=== PATIENT | female | born 1990 | race Native Hawaiian/Other Pacific Islander ===

== ENCOUNTER → 2022-09-22 14:25 | Outpatient (BNVA) | payer OTHER, SELFPAY | PROVIDERS: PCP Internal Medicine; Visit Provider Nurse Practitioner Family | DX: M79.10 Myalgia, unspecified site (principal); M62.838 Other muscle spasm; M54.2 Cervicalgia; G47.19 Other hypersomnia; G47.9 Sleep disorder, unspecified; R20.2 Paresthesia of skin; R51.9 Headache, unspecified; R06.83 Snoring | CPT/HCPCS: 99202 ==

== ENCOUNTER → 2022-10-24 14:56 | Outpatient (REF) | payer OTHER, SELFPAY | LOC: HO.SL 14:56 | PROVIDERS: PCP Internal Medicine; Visit Provider Nurse Practitioner Family | DX: G47.9 Sleep disorder, unspecified (principal); G47.19 Other hypersomnia; R06.83 Snoring | CPT/HCPCS: 95806 ==

== ENCOUNTER 2023-01-15 15:32 | Outpatient (AMB) | payer OTHER, SELFPAY ==
--- NOTE | 2023-01-15 15:33 | A.OFFVIS_ITS ---
Intake Intake Visit Reasons: 4m f/u Migraines - Roger # [phone] Intake Note: Patient states She referred her to several places and she's gone but still having a lot of pain in her body to the point it interrupts her sleep at night. I give her aleve PM almost daily and I know that's not ok to be taking daily but it's the only thing helping her (Mother) Allergies No Known Allergies Allergy (Verified 01/15/23 15:35) Medication List - Last Reconciled 01/15/23 by MARLON Santos baclofen 5 - 10 mg (1 - 2 x 5 mg) PO BEDTIME 30 days pregabalin 75 mg PO BID HPI HPI Comments History of Present Illness Details 32-yr-old female presents for f/u televi charissa visit via [employer], accompanied by her mother, who helps with history. Pt denies any significant interval medical changes. She did do PT, which helped at the time. Her neck pain is better during the day. The neck pain is worse at night when she goes to lie down. The bilateral scapular, upper back, and neck feels tight, cold. Feels like something is tight, bumpy, layered, especially the left scapula region. More recently she seems more sensitive to touch. She is having an almost daily headache again- right sided, feels like fireworks, a/w photophobia, phonophobia, tinnitus, dizzy/heaviness. She did not tolerate Pregabalin- she did not tolerate it. Baclofen was not helpful. She continues to struggle with staying asleep, snoring, fatigue. Mom is giving her Ibuprofen PM to help her sleep. HST showed AHI 2.1/hr w/ O2 britt 92%. [facility] Medical History (Updated 09/22/22 @ 16:25 by MARLON Santos) Anemia Surgical History S/P PDA repair History of enucleation of eye Family History Maternal Aunt Cancer Social History Alcohol intake: never Patient Tobacco Use Status: Never used Tobacco Review of Systems Const All systems reviewed & are unremarkable except as noted in HPI and below Physical Exam Const General: cooperative and no acute distress Orientation/consciousness: patient oriented x3 Resp Effort & Inspection: normal respiratory effort and able to speak in complete sentences Neuro Other: Decreased forward head posture General: patient oriented x3 Psych Appearance: grossly normal Mental Status: mental status grossly normal Affect: normal affect Attitude: cooperative Assessment & Plan Assessment & Plan (1) Myalgia: Code(s): M79.10 - Myalgia, unspecified site (2) Paresthesias: Code(s): R20.2 - Paresthesia of skin (3) Cervical paraspinal muscle spasm: Code(s): M62.838 - Other muscle spasm (4) Snoring: Code(s): R06.83 - Snoring (5) Excessive daytime sleepiness: Code(s): G47.19 - Other hypersomnia (6) Sleep difficulties: Code(s): G47.9 - Sleep disorder, unspecified (7) Headache: Code(s): R51.9 - Headache, unspecified (8) Cervicalgia: Code(s): M54.2 - Cervicalgia Plan Reviewed C-spine XR- slight reversal of the normal cervical lordosis. Moderate multilevel cervical spondylosis in mid to lower cervical spine. Reviewed labs- CBC, CMP, B12, folate, WILTON, TSH- NL. ESR 24 slightly elevated, CRP 6.82 H- will monitor, recheck at f/u. Hold Baclofen 5-10mg qhs- not helpful. Hold Pregabalin. Continue PT exercises. Try adding foam rolling, massage. Reviewed HST- inconclusive. Pt advised to undergo In-lab PSG to better assess for sleep apnea, PLMS. Future considerations- trigger point injections Monitor head/migraine- Trial Amitriptyline 10-20mg qhs- which may help sleep, myalgias. May use rest and/or OTC Tylenol/NSAIDs prn. f/u in 3 months or sooner prn. Orders: Orders RT PSG in-lab sleep study Today G47.19 - Other hypersomnia, G47.9 - Sleep disorder, unspecified, R06.83 - Snoring Medications: New amitriptyline 10 - 20 mg (1 - 2 x 10 mg) PO BEDTIME 30 days 60 tabs 3RF Discontinued baclofen Discontinued Reason: Doctor's Order 5 - 10 mg (1 - 2 x 5 mg) PO BEDTIME 30 days 60 tabs 3RF Telehealth Telehealth Location of provider rendering services: practice address Location of patient: address on file Patient Identification confirmed using: Name, : Yes Telehealth method: video Patient verbally consented to treatment: Yes Patient verbally consented to billing insurance company: Yes Patient informed of any privacy concerns related to visit: Yes Minutes spent on Phone/Video with Pt.: 30 Coding Level of Care Code Tele Est Pt Level 4 (42029) Diagnoses Myalgia M79.10 Paresthesias R20.2 Cervical paraspinal muscle spasm M62.838 Snoring R06.83 Excessive daytime sleepiness G47.19 Sleep difficulties G47.9 Headache R51.9 Cervicalgia M54.2
== END 2023-01-15 16:00 ==
PROVIDERS: PCP Internal Medicine; Visit Provider Nurse Practitioner Family
DX: M79.10 Myalgia, unspecified site (principal); R20.2 Paresthesia of skin; R06.83 Snoring; G47.19 Other hypersomnia; G47.9 Sleep disorder, unspecified; R51.9 Headache, unspecified; M54.2 Cervicalgia
CPT/HCPCS: 99214

== ENCOUNTER → 2023-01-15 15:32 | Outpatient (BNVA) | payer OTHER, SELFPAY | PROVIDERS: PCP Internal Medicine; Visit Provider Nurse Practitioner Family | DX: M79.10 Myalgia, unspecified site (principal); R20.2 Paresthesia of skin; R51.9 Headache, unspecified; R53.83 Other fatigue; D64.9 Anemia, unspecified ==

== ENCOUNTER 2023-05-01 14:26 | Outpatient (AMB) | payer OTHER, SELFPAY ==
--- NOTE | 2023-05-01 14:33 | A.OFFVIS_ITS ---
Intake Vital Signs 05/01/23 14:34 Height 5 ft 5 in Weight 148 lb BMI 24.6 BP 116/78 Blood Pressure Location Rt brachial Position Sitting Pulse 83 Pulse Source Pulse Oximeter Pulse Oximetry (%) 98 Oxygen Delivery Method Room Air Intake Visit Reasons: 3 mo f/u for Migraines-Confirmed Intake Note: Patient presents for 3 month follow up migraines. lately it's been increasing, for the past 2 weeks it's been everyday I get them stronger in the evening. Allergies No Known Allergies Allergy (Verified 05/01/23 14:40) Medication List - Last Reconciled 05/01/23 by MARLON Santos duloxetine 30 mg PO DAILY HPI HPI Comments History of Present Illness Details 32-yr-old female presents for f/u visit, accompanied by her mother. Pt denies any significant interval medical changes. She states she is not sleeping well. Finds that she is very restless at night- has to toss and turn to find a comfortable position. She has not had the f/u in-lab PSG yet- never heard. She has been having more headaches a/w photophobia and phonophobia. She thinks this is d/t not sleeping well. She did stop Amitriptyline- made her mood worse. She was just started on Duloxetine 30mg and OTC Magnesium a few days ago. She has not been doing her exercises in the last month or so- d/t the holidays [facility] Medical History (Updated 05/01/23 @ 15:26 by MARLON Santos) Anemia Surgical History S/P PDA repair History of enucleation of eye Family History Maternal Aunt Cancer Social History Alcohol intake: never Patient Tobacco Use Status: Never used Tobacco Review of Systems Const All systems reviewed & are unremarkable except as noted in HPI and below Physical Exam Vital Signs: Last Vital Signs Pulse 83 05/01/23 14:34 BP 116/78 05/01/23 14:34 Pulse Ox 98 05/01/23 14:34 Oxygen Delivery Method Room Air 05/01/23 14:34 BMI result Body Mass Index 24.6 Const General: cooperative and no acute distress Orientation/consciousness: patient oriented x3 HEENT Head: Yes normocephalic Resp Effort & Inspection: normal respiratory effort and able to speak in complete sentences Neuro General: patient oriented x3 and gait normal Cognition (Neuro): normal cognition Motor exam (neuro): 5/5 motor strength present throughout Psych Appearance: grossly normal Mental Status: mental status grossly normal Speech and movement: Normal speech and movement present Affect: normal affect Attitude: cooperative Thought process: Normal thought process present Thought content: Normal thought content present Insight: Good insight present (Psych) Judgement: Good judgement present (Psych) Assessment & Plan Assessment & Plan (1) Migraine without aura: Code(s): G43.009 - Migraine without aura, not intractable, without status migrainosus (2) Myalgia: Code(s): M79.10 - Myalgia, unspecified site (3) Cervicalgia: Code(s): M54.2 - Cervicalgia (4) Sleep difficulties: Code(s): G47.9 - Sleep disorder, unspecified (5) Excessive daytime sleepiness: Code(s): G47.19 - Other hypersomnia (6) Snoring: Code(s): R06.83 - Snoring Plan Resume PT exercises. Will f/u on order for In-lab PSG to better assess for sleep apnea, PLMS. Future considerations- trigger point injections ? For migraine- Stopped Amitriptyline. Concur w/ trying Duloxetine- may help headcahe, myalgia. Start OTC Riboflavin 400mg qam Continue OTC Magnesium 400-500mg qhs. May use rest and/or OTC Tylenol/NSAIDs prn. Previous tx trials- Amitriptyline- caused mood changes. ? f/u in 3-4 months or sooner prn. Coding Level of Care Code Est Pt Level 4 (91869) Diagnoses Migraine without aura G43.009 Myalgia M79.10 Cervicalgia M54.2 Sleep difficulties G47.9 Excessive daytime sleepiness G47.19 Snoring R06.83
[2023-05-01 14:34] VITALS: BP 116/78; PULSE 83; O2SAT 98; BMI 24.6
== END 2023-05-01 15:16 | disposition home or self-care (01) ==
PROVIDERS: PCP Internal Medicine; Visit Provider Nurse Practitioner Family
DX: G43.009 Migraine without aura, not intractable, without status migrainosus (principal); M79.10 Myalgia, unspecified site; M54.2 Cervicalgia; G47.9 Sleep disorder, unspecified; G47.19 Other hypersomnia; R06.83 Snoring
CPT/HCPCS: 99214

== ENCOUNTER → 2023-05-01 14:26 | Outpatient (BNVA) | payer OTHER, SELFPAY | PROVIDERS: PCP Internal Medicine; Visit Provider Nurse Practitioner Family | DX: G43.009 Migraine without aura, not intractable, without status migrainosus (principal); M79.10 Myalgia, unspecified site; M54.2 Cervicalgia; G47.9 Sleep disorder, unspecified; G47.19 Other hypersomnia; R06.83 Snoring | CPT/HCPCS: 99212 ==

== ENCOUNTER 2023-09-05 11:39 | Outpatient (AMB) | payer OTHER, SELFPAY ==
--- NOTE | 2023-09-05 11:40 | MHC.OFFVIS ---
Vital Signs 09/05/23 11:41 Height 5 ft 5 in Weight 141 lb 6 oz BMI 23.5 BP 120/74 Blood Pressure Location Rt brachial Position Sitting Pulse 66 Pulse Source Pulse Oximeter Pulse Oximetry (%) 99 Oxygen Delivery Method Room Air Intake Visit Reasons: Follow up Intake Note: Patient presents for follow up. Patient in pain, my legs and arms are hurting. not able to fall asleep have tried many different remedies. Allergies No Known Allergies Allergy (Verified 09/05/23 11:45) HPI Comments Details: 32-yr-old female presents for f/u visit. Pt accompanied by her mother. Pt denies any significant interval medical changes. Pt reports she continues to have pains throughout her body. Right now, the pain is tightness, tingling, and pressure in her left wrist and arm, legs. She has this same pain in left shoulder blade region. Her sleep is restless. She wakes up about 3 times a night to heat up a heating pad- stays warm for about 30 minutes. During the day, she applies the heating pad to different body parts, depending in where the pain is more bothersome- may do this 6 x's a day. Her neck continues to be sore at times, which is better when she sleeps on her back. She often wakes up with back soreness, which resolves once she gets up and starts moving. She continues to have headaches, cannot quantify how often. She did start Duloxetine, which she tolerated well and pt felt that she was more relaxed on it. She stopped as she had picked up refill, but then lost the bottles. She is more sensitive to touch- such as the texture of her clothes and bed linens. She was like this when younger, but then it subsided and has come back and worsening in the last few years. She is exercising more- does 5 minutes of exercises w/ 5 lb weights. Walking more. Does not stretch much. 09/29/22, XR C-spine: multilevel spondylosis. Brain MRI w/wo, 04/2022: IMPRESSION: No acute intracranial pathology or abnormal enhancement. There is no definite evidence of multiple sclerosis. LUE and LLE EMG, 02/2022: IMPRESSION: ?Normal study. There is no nerve conduction study evidence of a large-fiber sensorimotor polyneuropathy affecting the left lower or upper extremities. No electrodiagnostic evidence of a left sciatic neuropathy, tibial neuropathy, peroneal neuropathy at the ankle or fibular head, median neuropathy at the wrist (carpal tunnel syndrome), ulnar neuropathy at the wrist or elbow (cubital tunnel syndrome) or superficial radial neuropathy. No electrodiagnostic evidence of left lower lumbar/upper sacral or brachial plexopathies. No EMG evidence of left L3-S1 or C5-C8 acute radiculopathies. No EMG evidence of myopathy affecting studied muscles in the left lower and upper extremities. [facility] Medical History (Updated 09/05/23 @ 12:37 by MARLON Santos) Anemia Surgical History S/P PDA repair History of enucleation of eye Family History Maternal Aunt Cancer Social History Alcohol intake: never Patient Tobacco Use Status: Never used Tobacco Review of Systems Const All systems reviewed & are unremarkable except as noted in HPI and below Physical Exam Vital Signs: Last Vital Signs Pulse 66 09/05/23 11:41 BP 120/74 09/05/23 11:41 Pulse Ox 99 09/05/23 11:41 Oxygen Delivery Method Room Air 09/05/23 11:41 BMI result Body Mass Index 23.5 Const General: cooperative and no acute distress HEENT Head: Yes normocephalic Resp Effort & Inspection: normal respiratory effort and able to speak in complete sentences Neuro Other: A&O. Pt has mild developmental delay- has some word finding difficulties, but easily makes her needs known, and advocates for herself. Improved head/cervical posture- previously had marked forward head posture. On wall push-up- no scapular wing beating. General: gait normal and CN's II-XI intact bilaterally Motor exam (neuro): 5/5 motor strength present throughout Psych Appearance: grossly normal Speech and movement: Normal speech and movement present Affect: normal affect Attitude: cooperative Assessment & Plan Assessment & Plan (1) Myalgia: Code(s): M79.10 - Myalgia, unspecified site Category: Medical (2) Cervicalgia: Code(s): M54.2 - Cervicalgia Category: Medical (3) Cervical spondylolysis: Code(s): M43.02 - Spondylolysis, cervical region Category: Medical (4) Left upper arm pain: Code(s): M79.622 - Pain in left upper arm Category: Medical (5) Headache: Code(s): R51.9 - Headache, unspecified Category: Medical Plan For chronic diffuse pains: Reviewed XR C-spine: multilevel spondylosis Will refer to rheumatology. Check c-spine MRI w/o, as pt continue sto have neck and UE pain despite completing course of PT. Resume Duloxetine 30mg qd. Continue PT exercises. Pt has declined- In-lab PSG. ? For migraine- Resume Duloxetine.. OTC Riboflavin 400mg qam Magnesium 400-500mg qhs. May use rest and/or OTC Tylenol/NSAIDs prn. Previous tx trials- Amitriptyline- caused mood changes. ? f/u in 6 months or sooner prn. Orders: Orders MR cervical spine wo con Today M43.02 - Spondylolysis, cervical region, M54.2 - Cervicalgia, M79.622 - Pain in left upper arm Referrals Rheumatology Referral M79.10 - Myalgia, unspecified site Medications: New magnesium glycinate 400 mg orally daily at bedtime; may hold for loose stools 120 caps 6RF 30 days Changed From duloxetine 30 mg PO DAILY To duloxetine 30 mg PO DAILY 30 caps 3RF 30 days Coding Level of Care Code Est Pt Level 4 (37292) Diagnoses Myalgia M79.10 Cervicalgia M54.2 Cervical spondylolysis M43.02 Left upper arm pain M79.622 Headache R51.9
[2023-09-05 11:41] VITALS: BP 120/74; PULSE 66; O2SAT 99; BMI 23.5
== END 2023-09-05 12:38 | disposition home or self-care (01) ==
PROVIDERS: PCP Internal Medicine; Visit Provider Nurse Practitioner Family
DX: M79.10 Myalgia, unspecified site (principal); M54.2 Cervicalgia; M43.02 Spondylolysis, cervical region; M79.622 Pain in left upper arm; R51.9 Headache, unspecified
CPT/HCPCS: 99214

== ENCOUNTER → 2023-09-05 11:39 | Outpatient (BNVA) | payer OTHER, SELFPAY | PROVIDERS: PCP Internal Medicine; Visit Provider Nurse Practitioner Family | DX: M79.10 Myalgia, unspecified site (principal); M54.2 Cervicalgia; M43.02 Spondylolysis, cervical region; M79.622 Pain in left upper arm; R51.9 Headache, unspecified | CPT/HCPCS: 99212 ==

== ENCOUNTER 2023-11-15 12:03 | Outpatient (REF) | payer OTHER, SELFPAY ==
--- NOTE | ~2023-11-15 | MR_ITS ---
EXAMINATION: MR CERVICAL SPINE WITHOUT CONTRAST CLINICAL INFORMATION: Left arm pain, whole body weakness, occasional neck pain COMPARISON: None TECHNIQUE: MRI of the cervical spine was obtained using routine sequences without contrast. FINDINGS: The craniocervical junction is intact. There is mild retroflexion of the odontoid process. Nonspecific straightening of the normal cervical lordosis. There is no significant spondylolisthesis. Vertebral body heights are normal without acute compression fracture. No suspicious osseous lesion. Mild patchy intervertebral disc desiccation with preserved disc height. Minor disc bulges and uncovertebral spurring extending from C3-C4 through C6-C7 with uncovertebral spurring most pronounced on the left at C3-C4. Mild left C3-C4 neural foraminal stenosis with otherwise widely patent neural foramina. No spinal canal stenosis at any level. The cervical spinal cord is normal in signal and morphology. No epidural fluid collection, mass, or hematoma. No significant abnormalities of the paraspinal musculature. The flow voids of the major cervical vessels are maintained. The visualized intracranial structures are normal. No demonstrated abnormalities in the visualized neck. MR/MR cervical spine wo con IMPRESSION: Minimal cervical spondylosis as above with asymmetric left uncovertebral joint hypertrophy at C3-C4 contributing to mild left neural foraminal stenosis. Otherwise widely patent neural foramina and spinal canal. No cord compression or cord signal abnormality.
== END 2023-11-15 12:04 | disposition home or self-care (01) ==
LOC: HO.MRI 12:03
PROVIDERS: Visit Provider Nurse Practitioner Family
DX: M43.02 Spondylolysis, cervical region (principal); M54.2 Cervicalgia; M79.622 Pain in left upper arm
CPT/HCPCS: 72141

== ENCOUNTER 2024-03-25 15:39 | Outpatient (AMB) | payer OTHER, SELFPAY ==
--- NOTE | 2024-03-25 15:42 | MHC.OFFVIS ---
Vital Signs 03/25/24 15:44 Height 5 ft 5 in Weight 142 lb 2 oz BMI 23.6 BP 100/70 Blood Pressure Location Lt brachial Position Sitting Pulse 68 Pulse Source Pulse Oximeter Pulse Oximetry (%) 100 Oxygen Delivery Method Room Air Intake Visit Reasons: 6 mo f/u Intake Note: Patient presents for a 6 mo fu for Cervical spondylolysis. [employer] Required: No Accompanied by: Mother Allergies No Known Allergies Allergy (Verified 03/25/24 15:43) Medication List - Last Reconciled 03/25/24 by MARLON Santos duloxetine 30 mg PO DAILY 30 days magnesium glycinate 400 mg orally daily at bedtime; may hold for loose stools 30 days trazodone 25 - 50 mg (0.5 - 1 x 50 mg) PO BEDTIME PRN 7 days MDD 2 tabs HPI Comments Details: 32-yr-old female presents for f/u visit. Pt accompanied by her mother. Pt denies any significant interval medical changes. She has not seen rheumatology yet- pt had to cancel appt as she was not feeling well. Currently trying to reschedule. Pt reports she continues to have pains throughout her body which comes and goes- not horrible . Neck and back pains. Pt's mother notes that their diet tends to vary, at times they eat healthier and then at times they eat more junk food - snacks, chips, crackers. Pt reports she has early satiety- feels this is d/t her attempts last year to intentionally eat less last yr and her appetite has just remained low. Pt's mother has noticed that pt does seem to have more symptoms when she is eating more junk food . Pt reports her sleep was better after starting a sleep medication- ? trazodone and another which they are not sure of, however now she states she still has trouble sleeping. States she only sleeps seconds. Pt's mother reports pt's sleep is fragmented, may sleep a couple of hours, rarely will sleep 4-6 hrs, some nights does not sleep at all. She may take a nap during the day if she has not slept well. She has been having more headaches. Doing less exercise- not walking her dog outside once the weather became colder. Mother notes sleep is better when she exercises more. Previous work-up: 10/2023, MR/MR cervical spine wo con IMPRESSION: Minimal cervical spondylosis as above with asymmetric left uncovertebral joint hypertrophy at C3-C4 contributing to mild left neural foraminal stenosis. Otherwise widely patent neural foramina and spinal canal. No cord compression or cord signal abnormality. 09/29/22, XR C-spine: multilevel spondylosis. Brain MRI w/wo, 04/2022: IMPRESSION: No acute intracranial pathology or abnormal enhancement. There is no definite evidence of multiple sclerosis. LUE and LLE EMG, 02/2022: IMPRESSION: ?Normal study. There is no nerve conduction study evidence of a large-fiber sensorimotor polyneuropathy affecting the left lower or upper extremities. No electrodiagnostic evidence of a left sciatic neuropathy, tibial neuropathy, peroneal neuropathy at the ankle or fibular head, median neuropathy at the wrist (carpal tunnel syndrome), ulnar neuropathy at the wrist or elbow (cubital tunnel syndrome) or superficial radial neuropathy. No electrodiagnostic evidence of left lower lumbar/upper sacral or brachial plexopathies. No EMG evidence of left L3-S1 or C5-C8 acute radiculopathies. No EMG evidence of myopathy affecting studied muscles in the left lower and upper extremities. [facility] Medical History (Updated 09/05/23 @ 12:37 by MARLON Santos) Anemia Surgical History S/P PDA repair History of enucleation of eye Family History Maternal Aunt Cancer Social History Alcohol intake: never Patient Tobacco Use Status: Never used Tobacco Physical Exam Vital Signs: Last Vital Signs Pulse 68 03/25/24 15:44 BP 100/70 03/25/24 15:44 Pulse Ox 100 03/25/24 15:44 Oxygen Delivery Method Room Air 03/25/24 15:44 BMI result Body Mass Index 23.6 Const General: cooperative and no acute distress HEENT Head: Yes normocephalic Resp Effort & Inspection: normal respiratory effort and able to speak in complete sentences Neuro Other: A&O. Pt has mild developmental delay- less word finding difficulties today, easily makes her needs known, and advocates for herself. Improved head/cervical posture- previously had marked forward head posture. General: gait normal and CN's II-XI intact bilaterally (w/ exception of left eye dysconjugate gaze) Motor exam (neuro): 5/5 motor strength present throughout Psych Appearance: grossly normal Speech and movement: Normal speech and movement present Affect: normal affect Attitude: cooperative Assessment & Plan Assessment & Plan (1) Myalgia: Code(s): M79.10 - Myalgia, unspecified site Category: Medical (2) Cervicalgia: Code(s): M54.2 - Cervicalgia Category: Medical (3) Cervical spondylolysis: Code(s): M43.02 - Spondylolysis, cervical region Category: Medical (4) Left upper arm pain: Code(s): M79.622 - Pain in left upper arm Category: Medical (5) Headache: Code(s): R51.9 - Headache, unspecified Category: Medical Plan For chronic diffuse pains: Reviewed XR C-spine: multilevel spondylosis C-spine MRI- Mild spondylosis as above with asymmetric left uncovertebral joint hypertrophy at C3-C4 w/ mild left neural foraminal stenosis Rheumatology consult as ordered- office info shared w/ pt's mom to reschedule. Pt has stopped Duloxetine 30mg qd. Continue home PT exercises. Pt previously has declined- In-lab PSG. For migraine- Pt has stopped Duloxetine.. OTC Riboflavin 400mg qam Resume Magnesium 400mg qhs. May use rest and/or OTC Tylenol/NSAIDs prn. Previous tx trials- Amitriptyline- caused mood changes. For sleep: Pt belives she is taking Trazodone- ? dose and another med. Will request PCP notes to confirm current med tx plan. Reviewed general sleep education principles, including simple strategies to optimize sleep hygiene and sleep quality. List of sleep resources shared w/pt, such as the book Say [place] to Insomnia by Dr Davey Starkey. ? f/u in 6 months or sooner prn. Medications: Refilled magnesium glycinate 400 mg orally daily at bedtime; may hold for loose stools 120 caps 6RF 30 days Coding Level of Care Code Est Pt Level 4 (12640) Diagnoses Myalgia M79.10 Cervicalgia M54.2 Cervical spondylolysis M43.02 Left upper arm pain M79.622 Headache R51.9
[2024-03-25 15:44] VITALS: BP 100/70; PULSE 68; O2SAT 100; BMI 23.6
== END 2024-03-25 16:29 | disposition home or self-care (01) ==
PROVIDERS: PCP Internal Medicine; Visit Provider Nurse Practitioner Family
DX: M79.10 Myalgia, unspecified site (principal); M54.2 Cervicalgia; M43.02 Spondylolysis, cervical region; M79.622 Pain in left upper arm; R51.9 Headache, unspecified
CPT/HCPCS: 99214

== ENCOUNTER → 2024-03-25 15:39 | Outpatient (BNVA) | payer OTHER, SELFPAY | PROVIDERS: PCP Internal Medicine; Visit Provider Nurse Practitioner Family | DX: M79.10 Myalgia, unspecified site (principal); M54.2 Cervicalgia; M43.02 Spondylolysis, cervical region; M79.622 Pain in left upper arm; R51.9 Headache, unspecified | CPT/HCPCS: 99212 ==

== ENCOUNTER 2024-09-30 15:02 | Outpatient (AMB) | payer OTHER, SELFPAY ==
[2024-09-30 15:17] VITALS: BP 80/58; PULSE 98; O2SAT 97; BMI 24.1
--- NOTE | 2024-09-30 15:17 | A.OFFVIS_ITS ---
Vital Signs 09/30/24 15:17 Height 5 ft 5 in Weight 145 lb BMI 24.1 BP 80/58 L Blood Pressure Location Rt brachial Position Sitting Pulse 98 Pulse Source Pulse Oximeter Pulse Oximetry (%) 97 Oxygen Delivery Method Room Air Intake Visit Reasons: Follow Up Accompanied by: Self / Same As Patient Allergies No Known Allergies Allergy (Verified 03/25/24 15:43) Medication List - Last Reconciled 09/30/24 by MARLON Santos duloxetine 30 mg PO DAILY 30 days magnesium glycinate 400 mg orally daily at bedtime; may hold for loose stools 30 days trazodone 25 - 50 mg (0.5 - 1 x 50 mg) PO BEDTIME PRN 7 days MDD 2 tabs HPI Comments Details: 32-yr-old female presents for f/u visit. Pt is unaccompanied today. Pt denies any significant interval medical changes. Since the last visit, pt has moved into a shared living home. She has applied to start a day program. She has not seen rheumatology yet- pt had to cancel appt as she was not feeling well- she is unsure of the status of this. Pt reports she continues to have back pain when she wakes up- like she has been punched. Pt reports she is having more migraines, Tylenol and Ibuprofen is not helping. She is open to trying a new as needed migraine treatment. Previous work-up: 10/2023, MR/MR cervical spine wo con IMPRESSION: Minimal cervical spondylosis as above with asymmetric left uncovertebral joint hypertrophy at C3-C4 contributing to mild left neural foraminal stenosis. Otherwise widely patent neural foramina and spinal canal. No cord compression or cord signal abnormality. 09/29/22, XR C-spine: multilevel spondylosis. Brain MRI w/wo, 04/2022: IMPRESSION: No acute intracranial pathology or abnormal enhancement. There is no definite evidence of multiple sclerosis. LUE and LLE EMG, 02/2022: IMPRESSION: ?Normal study. * There is no nerve conduction study evidence of a large-fiber sensorimotor polyneuropathy affecting the left lower or upper extremities. * No electrodiagnostic evidence of a left sciatic neuropathy, tibial neuropathy, peroneal neuropathy at the ankle or fibular head, median neuropathy at the wrist (carpal tunnel syndrome), ulnar neuropathy at the wrist or elbow (cubital tunnel syndrome) or superficial radial neuropathy. * No electrodiagnostic evidence of left lower lumbar/upper sacral or brachial plexopathies. * No EMG evidence of left L3-S1 or C5-C8 acute radiculopathies. * No EMG evidence of myopathy affecting studied muscles in the left lower and upper extremities. [facility] Medical History (Updated 09/30/24 @ 17:05 by MARLON Santos) Anemia Surgical History S/P PDA repair History of enucleation of eye Family History Maternal Aunt Cancer Social History Alcohol intake: never Patient Tobacco Use Status: Never used Tobacco Physical Exam Vital Signs: Last Vital Signs Pulse 98 09/30/24 15:17 BP 80/58 L 09/30/24 15:17 Pulse Ox 97 09/30/24 15:17 Oxygen Delivery Method Room Air 09/30/24 15:17 BMI result Body Mass Index 24.1 Const General: cooperative and no acute distress HEENT Head: Yes normocephalic Resp Effort & Inspection: normal respiratory effort and able to speak in complete sentences Neuro Other: A&O. Pt has mild developmental delay- less word finding difficulties today, easily makes her needs known, and advocates for herself. Improved head/cervical posture- previously had marked forward head posture. General: gait normal and CN's II-XI intact bilaterally (w/ exception of left eye dysconjugate gaze) Motor exam (neuro): 5/5 motor strength present throughout Psych Appearance: grossly normal Speech and movement: Normal speech and movement present Affect: normal affect Attitude: cooperative Assessment & Plan Assessment & Plan (1) Lower back pain: Code(s): M54.50 - Low back pain, unspecified Category: Medical (2) Myalgia: Code(s): M79.10 - Myalgia, unspecified site Category: Medical (3) Cervicalgia: Code(s): M54.2 - Cervicalgia Category: Medical (4) Cervical spondylolysis: Code(s): M43.02 - Spondylolysis, cervical region Category: Medical (5) Headache: Code(s): R51.9 - Headache, unspecified Category: Medical Qualifiers: Headache chronicity pattern: episodic headache Intractability: not intractable Plan For chronic diffuse pains, back pain: XR C-spine: multilevel spondylosis C-spine MRI- Mild spondylosis as above with asymmetric left uncovertebral joint hypertrophy at C3-C4 w/ mild left neural foraminal stenosis Rheumatology consult as ordered- office previously info shared w/ pt's mom to reschedule. Will request PT- order slip given to pt Pt previously has declined- In-lab PSG. For migraine- OTC Riboflavin 400mg qam Resume Magnesium 400mg qhs. Trial Sumatriptan 100mg tab, 1/2 - 1 tab (50-100mg) at onset of headache, may repeat in 2 hours. Max of 2 tabs (200mg) per 24 hours. May take sumatriptan with OTC Tylenol 650-1,000mg every 4-6 hours, Ibuprofen (liquid gels) 600mg every 6 hours, or Naproxen (liquid gels) 440mg q 12 hrs prn. Potential adverse effects of triptans, include but are not limited to nausea, fatigue, chest tightness/tingling (usually passes within a few minutes), me dication overuse headaches. Previous tx trials- Amitriptyline- caused mood changes. For sleep: Previously reviewed general sleep education principles, including simple strategies to optimize sleep hygiene and sleep quality. Continue to monitor ? f/u in 6 months or sooner prn. Orders: Orders PT Evaluation and Treatment Today M54.50 - Low back pain, unspecified Medications: New sumatriptan succinate 100 mg PO BID 30 days PRN 12 tabs 6RF migraine headache Refilled magnesium glycinate (4 x 100 mg magnesium) 400 mg orally daily at bedtime; may hold for loose stools 30 days 120 caps 6RF Coding Level of Care Code Est Pt Level 4 (63785) Diagnoses Lower back pain M54.50 Myalgia M79.10 Cervicalgia M54.2 Cervical spondylolysis M43.02 Headache R51.9 Headache chronicity pattern: episodic headache Intractability: not intractable
--- OUTSIDE RECORDS SUMMARY | 2024-09-30 16:42 | XMS_ITS | Patient Health Record ---
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 Name Role Phone IDANIA SCHROEDER Primary Care Provider Kristin Arroyo Unavailable [phone] Allergies No Known Allergies Reason For Referral No Information Medications Medication SIG (Take, Route, Frequency, Duration) Notes Start Date End Date Status Clotrimazole-Betamethasone 1-0.05 % 1 application to affected area Externally Twice a day for 14 days 01/18/2023 Active Amitriptyline HCl 10 MG 1 tablet at bedt yo Orally Once a day for 30 day(s) Active Problems Problem Type SNOMED Code ICD Code Onset Dates Problem Status W/U Status Risk Notes Problem Excessive and frequent menstruation (191542251) Excessive and frequent menstruation with regular cycle (N92.0) Active confirmed Problem Unspecified glaucoma (365.9) Active confirmed Diag Plan Of Treatment Pending Test Test Name Order Date Urinalysis 07/23/2018 THIN PREP,HPV IF ASCUS, CT/GC (21-29YR) 07/23/2018 Next Appt Details Provider Name:Kristinmarci nielsen, 04/02/2025 01:40:00 PM, [address], [address], [place], [address], Insurance Providers Payer Name Payer Address Payer Phone Subscriber Number Group Number Insured Name Patient Relationship to Insured Coverage Start Date Coverage End Date [facility] [address] [address] [place] [address] [id number] YOBANY FLANAGAN Self - patient is the insured Medical (General) History Medical History History ICD Code Cardiac murmur, unspecified R01.1 Excessive and frequent menstruation with regular cycle N92.0 Unspecified glaucoma H40.9 Dysmenorrhea, unspecified N94.6 Surgical History Surgery Date(Month/Year) Closure of PDA Facial Surgery Left Eye Surgery Hospitalization History Reason Date(Month/Year) See Surgical Hx
== END 2024-09-30 15:49 | disposition home or self-care (01) ==
LOC: HO.HSMS 15:03
PROVIDERS: PCP Internal Medicine; Visit Provider Nurse Practitioner Family
DX: M54.50 Low back pain, unspecified (principal); M79.10 Myalgia, unspecified site; M54.2 Cervicalgia; M43.02 Spondylolysis, cervical region; R51.9 Headache, unspecified
CPT/HCPCS: 99214

== ENCOUNTER → 2024-09-30 15:02 | Outpatient (BNVA) | payer OTHER, SELFPAY | PROVIDERS: PCP Internal Medicine; Visit Provider Nurse Practitioner Family | DX: M54.50 Low back pain, unspecified (principal); M79.10 Myalgia, unspecified site; M54.2 Cervicalgia; M43.02 Spondylolysis, cervical region; R51.9 Headache, unspecified | CPT/HCPCS: 99212 ==